=== PATIENT | male | born 1960 | race Caucasian/White ===

== ENCOUNTER 2018-04-02 10:59 | Emergency (ER) | payer OTHER ==
[~2018-04-02] VITALS: Ht 172.7 cm; Wt 94.2 kg
[2018-04-02 11:04] VITALS: TEMP 36.4; Ht 172.7 cm; Wt 94.2 kg
[2018-04-02] MEDS ORDERED: MoRPHine SULFATE 10 MG/ML CARP/VIAL IV STA (11:26)
[2018-04-02] MEDS ORDERED: SODIUM CHLORIDE 0.9% 1000ML 1,000 ML IV STA (11:26)
[2018-04-02] MEDS ORDERED: KETOROLAC TROMETHAMINE 30 MG/ML VIAL IV STA (11:26)
[2018-04-02] MEDS ORDERED: ONDANSETRON INJ 2 MG/ML 2 ML VIAL IV STA (11:26)
[2018-04-02] MEDS ORDERED: TAMSULOSIN HCL 0.4 MG CAP PO ONE (11:30)
[2018-04-02 12:02] LABS: BASO % 0.2 %; BASO ABS # 0.03 K/uL (0-0.2); EOS % 0.2 %; EOS ABS # 0.02 K/uL (0-0.5); HEMATOCRIT 42.9 % (42-52); HEMOGLOBIN 14.9 g/dL (14.0-18.0); IG# 0.03 K/uL (0.00-0.02); LYMPH % 10.8 %; MEAN CELL VOLUME 87.4 fL (80-100); MEAN CORPUSCULAR HEMOGLOBIN 30.3 pg (25-34); MEAN CORPUSCULAR HGB CONC 34.7 g/dl (32-36); MEAN PLATELET VOLUME 11.2 fL (7.4-10.4); MONO % 4.4 %; MONO ABS # 0.53 K/uL (0.11-0.59); NEUT % 84.2 %; PLATELET COUNT 253 K/uL (130-400); RED CELL DISTRIBUTION WIDTH CV 12.9 % (11.5-14.5); RED CELL DISTRIBUTION WIDTH SD 41.4 fL (36.4-46.3); WHITE BLOOD COUNT 12.01 K/uL (4.8-10.8)
[2018-04-02 12:24] LABS: ALBUMIN 4.1 gm/dl (3.4-5.0); CALCIUM 9.3 mg/dl (8.5-10.1); CREATININE 1.41 mg/dl (0.60-1.40); POTASSIUM 4.4 mmol/L (3.5-5.1); TOTAL PROTEIN 7.6 gm/dl (6.4-8.2)
--- NOTE | 2018-04-02 12:43 | DIAGNOSTIC IMAGING REPORT ---
ABD/PELVIS WITHOUT FOR STONE HISTORY: 57 years-old Male Right lower quadrant pain acute right lower quadrant abdominal pain. History of prior hernia repair. COMPARISON: None available TECHNIQUE: Multiple axial CT images of the abdomen and pelvis were obtained without the use of IV contrast. A dose lowering technique was used consistent with the principals of IRWIN. FINDINGS: Minimal dependent subsegmental bibasilar atelectasis. No pneumatosis or pneumoperitoneum. Imaged inferior cardiac chambers are unremarkable. Contracted gallbladder. The liver, spleen, and adrenal glands are unremarkable. Mild generalized pancreatic atrophy. Mild nonspecific bilateral perinephric stranding. Punctate nonobstructing calculus of the superior pole right kidney. Mild right-sided hydroureteronephrosis secondary to a 4 x 3 x 3 mm calculus of the distal right ureterovesicular junction, image 389 series 3. Calcifications of the bilateral vas deferens. The prostate is mildly prominent size. Small bilateral fat filled inguinal hernias. Mild to moderate calcification of the aorta without aneurysm. No pathologically enlarged lymph nodes. Small sliding-type hiatal hernia. There is no bowel obstruction or focal bowel wall thickening. Nondistention involves the majority of the colon. Terminal ileum and appendix appear unremarkable. Calcifications with mild soft tissue stranding about the subcutaneous right anterior abdominal wall, possibly postsurgical. Subcentimeter fatty attenuating foci of the abdominal right upper quadrant may reflect areas of prior omental infarct measuring up to 11 mm. Bones appear intact. IMPRESSION: 1. Mild right-sided hydroureteronephrosis secondary to a 4 x 3 x 3 mm calculus of the distal right ureterovesicular junction. Additional nonobstructing 2 mm calculus of the superior pole right kidney. 2. No bowel obstruction or focal bowel wall thickening. Normal appendix. The above report was generated using voice recognition software. It may contain grammatical, syntax or spelling errors. Electronically signed by: Basil Osborn M.D. 04/02/2018 12:41 PM Dictated Date/Time: 04/02/2018 12:34 PM
[2018-04-02 13:20] VITALS: BP 151/44; PULSE 56; O2SAT 98
[2018-04-02] MEDS ORDERED: ONDA4TAB10 SL (13:29)
[2018-04-02] MEDS ORDERED: TAMS0.4C38 PO (13:29)
[2018-04-02] MEDS ORDERED: OXYC-737 PO (13:29)
--- NOTE | 2018-04-02 13:31 | EMERGENCY ROOM VISIT NOTE ---
History First contact with patient: 11:22 Chief Complaint: ABDOMINAL PAIN Stated Complaint: STOMACH PAIN History of Present Illness The patient is a 57 year old male who presents to the Emergency Room with complaints of right lower abdominal pain since 6 AM this morning. The patient states he had a normal bowel movement this morning. The patient admits to nausea and vomiting since the onset of the symptoms. He rates the pain and an 8 out of 10. He states he tried to go to work but states the pain was too severe which is why he came to the emergency room. The patient states that he lives in [place]. The patient denies any fever. He denies any back pain. He does admit to dysuria but denies any hematuria, urgency or frequency. The patient has a history of diabetes. Review of Systems 10 system review was performed and was negative unless stated otherwise history of present illness. Past Medical/Surgical History Diabetic Social History Smoking Status: Never Smoker Marital Status: Housing Status: lives with family Occupation Status: employed Physical Exam Vital Signs Date Time Temp Pulse Resp B/P (MAP) Pulse Ox O2 Delivery O2 Flow Rate FiO2 04/02/18 13:20 56 16 151/44 98 Room Air 04/02/18 12:24 55 16 158/74 99 Room Air 04/02/18 12:14 56 20 157/85 100 Room Air 04/02/18 11:04 36.4 58 18 177/92 97 Room Air Physical Exam GENERAL: 49-year-old white male appears uncomfortable secondary to abdominal pain. MENTAL Status: Alert and oriented 3. MOUTH: Mucosa is moist NECK: Supple, no lymphadenopathy noted. No carotid bruits noted. LUNGS: Clear auscultation without wheezes rales or rhonchi. CARDIAC: Regular rate and rhythm without murmur. Pulses is full and equal throughout. BACK: No CVA tenderness noted. ABDOMEN: Positive bowel sounds all 4 quadrants. Soft, protuberant, nontender to palpation without organomegaly or masses. EXTREMITIES: No cyanosis or edema noted. Medical Decision & Procedures ER Provider Diagnostic Interpretation: ABD/PELVIS WITHOUT FOR STONE HISTORY: 57 years-old Male Right lower quadrant pain acute right lower quadrant abdominal pain. History of prior hernia repair. COMPARISON: None available TECHNIQUE: Multiple axial CT images of the abdomen and pelvis were obtained without the use of IV contrast. A dose lowering technique was used consistent with the principals of IRWIN. FINDINGS: Minimal dependent subsegmental bibasilar atelectasis. No pneumatosis or pneumoperitoneum. Imaged inferior cardiac chambers are unremarkable. Contracted gallbladder. The liver, spleen, and adrenal glands are unremarkable. Mild generalized pancreatic atrophy. Mild nonspecific bilateral perinephric stranding. Punctate nonobstructing calculus of the superior pole right kidney. Mild right-sided hydroureteronephrosis secondary to a 4 x 3 x 3 mm calculus of the distal right ureterovesicular junction, image 389 series 3. Calcifications of the bilateral vas deferens. The prostate is mildly prominent size. Small bilateral fat filled inguinal hernias. Mild to moderate calcification of the aorta without aneurysm. No pathologically enlarged lymph nodes. Small sliding-type hiatal hernia. There is no bowel obstruction or focal bowel wall thickening. Nondistention involves the majority of the colon. Terminal ileum and appendix appear unremarkable. Calcifications with mild soft tissue stranding about the subcutaneous right anterior abdominal wall, possibly postsurgical. Subcentimeter fatty attenuating foci of the abdominal right upper quadrant may reflect areas of prior omental infarct measuring up to 11 mm. Bones appear intact. IMPRESSION: 1. Mild right-sided hydroureteronephrosis secondary to a 4 x 3 x 3 mm calculus of the distal right ureterovesicular junction. Additional nonobstructing 2 mm calculus of the superior pole right kidney. 2. No bowel obstruction or focal bowel wall thickening. Normal appendix. The above report was generated using voice recognition software. It may contain grammatical, syntax or spelling errors. Electronically signed by: Basil Osborn M.D. 04/02/2018 12:41 PM Laboratory Results 04/02/18 11:51 Red Blood Count 4.91, Mean Corpuscular Volume 87.4, Mean Corpuscular Hemoglobin 30.3, Mean Corpuscular Hemoglobin Concent 34.7, Mean Platelet Volume 11.2, Neutrophils (%) (Auto) 84.2, Lymphocytes (%) (Auto) 10.8, Monocytes (%) (Auto) 4.4, Eosinophils (%) (Auto) 0.2, Basophils (%) (Auto) 0.2, Neutrophils # (Auto) 10.10, Lymphocytes # (Auto) 1.30, Monocytes # (Auto) 0.53, Eosinophils # (Auto) 0.02, Basophils # (Auto) 0.03 04/02/18 11:51 Test 04/02/18 11:51 04/02/18 12:35 White Blood Count 12.01 K/uL (4.8-10.8) Red Blood Count 4.91 M/uL (4.7-6.1) Hemoglobin 14.9 g/dL (14.0-18.0) Hematocrit 42.9 % (42-52) Mean Corpuscular Volume 87.4 fL (80-100) Mean Corpuscular Hemoglobin 30.3 pg (25-34) Mean Corpuscular Hemoglobin Concent 34.7 g/dl (32-36) Platelet Count 253 K/uL (130-400) Mean Platelet Volume 11.2 fL (7.4-10.4) Neutrophils (%) (Auto) 84.2 % Lymphocytes (%) (Auto) 10.8 % Monocytes (%) (Auto) 4.4 % Eosinophils (%) (Auto) 0.2 % Basophils (%) (Auto) 0.2 % Neutrophils # (Auto) 10.10 K/uL (1.4-6.5) Lymphocytes # (Auto) 1.30 K/uL (1.2-3.4) Monocytes # (Auto) 0.53 K/uL (0.11-0.59) Eosinophils # (Auto) 0.02 K/uL (0-0.5) Basophils # (Auto) 0.03 K/uL (0-0.2) RDW Standard Deviation 41.4 fL (36.4-46.3) RDW Coefficient of Variation 12.9 % (11.5-14.5) Immature Granulocyte % (Auto) 0.2 % Immature Granulocyte # (Auto) 0.03 K/uL (0.00-0.02) Anion Gap 8.0 mmol/L (3-11) Est Creatinine Clear Calc Drug Dose 63.6 ml/min Estimated GFR () 63.2 Estimated GFR (Non- 54.5 BUN/Creatinine Ratio 15.5 (10-20) Calcium Level 9.3 mg/dl (8.5-10.1) Total Bilirubin 0.6 mg/dl (0.2-1) Direct Bilirubin 0.1 mg/dl (0-0.2) Aspartate Amino Transf (AST/SGOT) 13 U/L (15-37) Alanine Aminotransferase (ALT/SGPT) 21 U/L (12-78) Alkaline Phosphatase 95 U/L (45-117) Total Protein 7.6 gm/dl (6.4-8.2) Albumin 4.1 gm/dl (3.4-5.0) Lipase 63 U/L (73-393) Urine Color YELLOW Urine Appearance CLEAR (CLEAR) Urine pH 5.0 (4.5-7.5) Urine Specific [place] 1.034 (1.000-1.030) Urine Protein TRACE (NEG) Urine Glucose (UA) 2+ (NEG) Urine Ketones 2+ (NEG) Urine Occult Blood 3+ (NEG) Urine Nitrite NEG (NEG) Urine Bilirubin NEG (NEG) Urine Urobilinogen NEG (NEG) Urine Leukocyte Esterase TRACE (NEG) Urine WBC (Auto) 1-5 /hpf (0-5) Urine RBC (Auto) 5-10 /hpf (0-4) Urine Hyaline Casts (Auto) 10-30 /lpf (0-5) Urine Epithelial Cells (Auto) >30 /lpf (0-5) Urine Bacteria (Auto) NEG (NEG) Medications Administered Medications (Trade) Dose Ordered Sig/Raffaele Route Start Time Stop Time Status Last Admin Dose Admin Sodium Chloride 1,000 ml @ 999 mls/hr Q1H1M STAT IV 04/02/18 11:26 04/02/18 12:26 DC 04/02/18 11:52 999 MLS/HR Morphine Sulfate (MoRPHine SULFATE INJ) 6 mg NOW STAT IV 04/02/18 11:26 04/02/18 11:30 DC 04/02/18 11:52 6 MG Ondansetron HCl (Zofran Inj) 4 mg NOW STAT IV 04/02/18 11:26 04/02/18 11:30 DC 04/02/18 11:51 4 MG Ketorolac Tromethamine (Toradol Inj) 30 mg NOW STAT IV 04/02/18 11:26 04/02/18 11:30 DC 04/02/18 11:52 30 MG Tamsulosin HCl (Flomax Cap) 0.4 mg NOW ONCE PO 04/02/18 11:30 04/02/18 11:31 DC 04/02/18 11:51 0.4 MG ED Course The patient was evaluated. The patient has not been seen in the [facility] system prior to this ER visit. IV access was obtained. The patient was given 1 L normal saline wide open. He was given morphine 6 mg IV, Toradol 30 mg IV, Zofran 4 mg IV and Flomax 0.4 mg p.o. CBC and differential, renal profile, LFTs and lipase levels were ordered. Urinalysis was ordered. CT stone study was ordered and interpreted by the radiologist as above with a 4 x 3 x 3 mm stone at the right UV junction and additional 2 mm stone in the right renal pelvis. Labs are reviewed. White count was slightly elevated at 12,000. BUN was 22, creatinine 1.41 and blood glucose was 226. The patient was informed of all findings. He was reevaluated and was feeling much better. His urinalysis revealed positive blood positive ketones but no bacteria. We will sent this for culture. The patient was discharged home in stable condition. The patient will follow up with the urologist in [place] as per patient's request. Medical Decision Differential diagnosis include UTI, pyelonephritis, kidney stone, acute appendicitis, bowel obstruction [place] Drug Monitoring Program Search Results: patient reviewed within database Medication Reconcilliation Current Medication List: was personally reviewed by al Blood Pressure Screening Patient's blood pressure: Elevated blood pressure Blood pressure disposition: Elevated BP felt to be situational Impression Primary Impression: Ureteral calculus, right Departure Information Dispostion Home / Self-Care Condition GOOD Prescriptions Oxycodone Immediate Rel Tab (ROXICODONE IR) 5 Mg Tab 1-2 TAB PO Q4H Y for Pain, #20 TAB Prov: Marisa Garcia PA-C 04/02/18 Ondasetron Odt (ZOFRAN ODT) 4 Mg Tab 4 MG SL Q6H for Nausea, #14 TAB Prov: Marisa Garcia PA-C 04/02/18 Tamsulosin Hcl (FLOMAX) 0.4 Mg Cap 0.4 MG PO DAILY for 7 Days, #7 CAP Prov: Marisa Garcia PA-C 04/02/18 Referrals No Doctor, Assigned (PCP) Forms Call Back Authorization, HOME CARE DOCUMENTATION FORM, IMPORTANT VISIT INFORMATION Patient Instructions Kidney Stones - [facility] Additional Instructions Push fluids. Strain all urine. Take Flomax daily as prescribed. Ibuprofen 600 mg every 6 hours with food for pain. Take OxyIR as needed for more severe pain. Do not drive while taking the OxyIR. Take Zofran as needed for nausea. If you do not pass a stone in 4-5 days recommend follow-up with a urologist in your area. If you experience any uncontrolled pain, uncontrolled nausea vomiting return to ER immediately.
== END 2018-04-02 13:50 | disposition home or self-care (01) ==
LOC: C.EDB 11:02 → C.EDC 13:50
DX: N20.1 Calculus of ureter (principal); R11.2 Nausea with vomiting, unspecified; R30.0 Dysuria; E11.9 Type 2 diabetes mellitus without complications